=== PATIENT | female | born 1940 | race Caucasian/White ===

== ENCOUNTER 2017-12-29 20:12 | Inpatient (IN) ==
[2017-12-29] MEDS ORDERED: fentaNYL CITRATE/PF 50 MCG/ML AMPUL IV ONE (20:28)
--- NOTE | 2017-12-29 20:40 | ERNOTE ---
Lower Extremity HPI - Narrative Date of Service: 12/29/17 - General Lower Extremities Pain: hip: right Time Seen by Provider: 12/29/17 20:12 Source: patient, EMS Exam Limitations: no limitations - Immun/Allergies/Home Medications Immunizations: IMMUNIZATION HX Immunizations Up to Date Yes History of Influenza Vaccine No Hx Pneumococcal Vaccination No Allergies/Adverse Reactions: Allergies Allergy/AdvReac Type Severity Reaction Status Date / Time Penicillins Allergy Intermediate Hives Verified 12/29/17 23:34 codeine AdvReac Intermediate Vomiting Verified 12/29/17 23:34 morphine AdvReac Intermediate Vomiting Verified 12/29/17 23:34 Home Medications: HOME MEDICATIONS Levothyroxine Sodium [Levo-T] 25 mcg PO DAILY 12/29/17 [Last Taken 12/29/17 08:00] Metoprolol Succinate [Toprol Xl] 25 mg PO DAILY 12/29/17 [Last Taken 12/29/17 08:00] Mirtazapine [Mirtazapine (Remeron)] 15 mg PO HS 12/29/17 [Last Taken 12/28/17 21:00] - History of Present Illness Narrative: This patient is a 77-year-old female who was sent from [facility] for a hip fracture. She said that around 4 or 5 PM, she got up from the couch. Her foot was asleep and she fell, injuring her hip. She denies any other injury. She went to the hospital at [facility], where x-rays were done and she was diagnosed with a hip fracture. They do not have an orthopedic surgeon so the patient was sent here. The patient says that she has a history of hypothyroidism. She is not totally sure what medication she takes but she appears to also be on metoprolol. She denies chest pain or shortness of breath or any other problems. She received fentanyl without relief. She was given Dilaudid and vomited afterwards. Review of Systems - Review of Systems Constitutional: Absent: fever EYE: Absent: blurred vision, double vision ENT: Absent: ear pain, nose pain, nose congestion, sore throat Respiratory: Absent: shortness of breath, cough Cardiology: Absent: chest pain, palpitations, syncope Gastrointestinal/Abdominal: Present: nausea, vomiting. Absent: diarrhea, constipation, abdominal pain Genitourinary: Absent: frequency, pain, dysuria, hematuria Musculoskeletal: Present: joint pain. Absent: back pain, neck pain Skin: Absent: rash Neurological: Absent: headache, dizziness/light-headedness, numbness, tingling Endocrine: Present: other - No diabetes Hematologic/Lymphatic: Present: other - No bleeding Psych: Present: no symptoms reported Medical History (Last Updated 12/29/17 @ 20:39 by Jagdish Faith MD) Hypertension Hypothyroid She denies prior surgeries Surgical History: Surgical History (Last Reviewed 12/29/17 @ 23:32 by Nighat Jimenez RN) H/O tubal ligation Family History: Family History (Last Reviewed 12/29/17 @ 23:32 by Nighat Jimenez RN) Mother CVA (cerebral vascular accident) Heart disease Father CVA (cerebral vascular accident) Heart disease Social History: Preferred Language Wallisian Do you have any hoahaoism or Anabaptism cultural preference? Smoking Status Never smoker Alcohol Use none Drug Use none No Social History Section defined Physical Exam - Physical Exam General Appearance: Present: wd/wn, alert, no apparent distress Head Exam: Present: normal inspection, no evidence of injury, no tenderness w palpation Eye Exam: Normal inspection: bilateral Ears, Nose, Throat: Present: normal ENT inspection Neck: Present: normal inspection, nontender Respiratory: Present: no respiratory distress, normal breath sounds, no accessory muscle use, lungs clear Cardiovascular/Chest: Present: regular rate, rhythm, no murmur Gastrointestinal/Abdominal: Present: normal bowel sounds, nontender, nondistended, soft, no organomegaly Extremity Exam: Present: other - The right lower extremity is shortened and rotated. She has pain with movement of the hip. Neurological Exam: Present: alert, oriented, normal mood/affect Skin Exam: Present: normal color, warm/dry ED Progress - Date and Time Seen: Date and Time: The information sent from [facility] was reviewed. The x-ray report indicates displaced intertrochanteric fracture. No labs were done. Labs, x-rays, and EKG are back. I spoke with Dr. Locke and Dr. Curtis. The patient will be admitted. Plan is n.p.o. after midnight with surgical repair around 9 AM. - Results and Orders Patient's Lab Results:: I have reviewed the patient's lab results. - Vital Signs Patient's Vital Signs:: I have reviewed the patient's vital signs. Vital Signs: Vital Signs 11/24/18 20:14 Temperature 36.7 C Pulse Rate 70 Respiratory Rate 14 Blood Pressure 142/70 - EKG EKG read: Interp. by me - Normal sinus rhythm, rate 65, normal-appearing EKG. - X-Ray X-Ray #1 X-Ray: chest Interpretation: Interp. by me - No acute process - Progress/Reassessment Chief Complaint: Hip Pain/Injury Departure Clinical Impression: Intertrochanteric fracture of right hip, Urinary tract infection, History of hypertension, History of hypothyroidism - Departure Disposition: Still a patient Condition: Stable
[2017-12-29 20:49] LABS: Hematocrit 41.9 % (37.0-47.0); Hemoglobin 13.3 gm/dL (12.5-16.0); Mean Cell Volume 89.3 fl (78-100); Mean Corpuscular Hemoglobin 28.4 pg (27-31); Mean Corpuscular Hgb Conc 31.7 g/dl (32-36); Mean Platelet Volume 9.9 fl (8-12.5); Neutrophil # 14.9 K/mm3 (1.3-6.0); Neutrophil % 83.6 % (42-75.0); Platelet Count 405 K/mm3 (150-450); Red Blood Count 4.69 M/mm3 (4.2-5.4); Red Cell Distribution Width 14.3 % (11.5-14.0); White Blood Count 17.8 K/mm3 (4.0-10.5)
[2017-12-29 20:54] LABS: Urine Appearance Slightly Cloudy (CLEAR); Urine Bilirubin Negative (NEGATIVE); Urine Blood Negative /ul (NEGATIVE); Urine Color Yellow; Urine Ketone Negative (NEGATIVE); Urine Protein Negative (NEGATIVE); Urine pH 6.5 pH (5.0-7.0)
[2017-12-29 20:55] LABS: Urine Urobilinogen Normal (NORMAL)
[2017-12-29 20:58] LABS: Urine Nitrite Positive (NEGATIVE)
[2017-12-29 21:00] LABS: Urine Bacteria 3+; Urine RBC 0-5 /hpf (0-5); Urine WBC 0-5 /hpf (0-5)
[2017-12-29 21:03] LABS: Albumin * 3.4 gm/dl (3.4-5.0); Anion Gap 9.9 mmol/L (6.8-13.8); BUN/Creatinine Ratio 10.2 (9.0-21.6); Bilirubin, Total 0.3 mg/dL (0.0-1.1); Ca. Corrected For Albumin 9.3 mg/dL (8.4-10.2); Calcium * 9.1 mg/dL (7.9-10.9); Carbon Dioxide 28.5 mmol/L (24-32.6); Potassium 4.4 mmol/L (3.4-4.6); Total Protein 7.1 gm/dL (6.2-8.2)
--- NOTE | 2017-12-29 23:33 | HP ---
Chief Complaint - Chief Complaint Date of Service: 12/29/17 Time of Service: 23:32 Chief Complaint: Fall, right hip pain History of Present Illness: Asha is a 77 yo female who reports being in her usual state of health today. She had been sitting on her foot and got up to walk. Her foot had become numb from sitting on it and it caused her to trip and fall. She immediately began having right hip pain. She presented initially to [facility]. Right hip was found to be fracture and orthopedics at [facility] were consulted. The patient was accepted for transfer and arrived at our ER. She had bloodwork, urine, and ekg. Urine was suspicious for possible UTI and she had leukocytosis. Asha reports frequent urination but this is normal. She denies dysuria. She again reports no new symptoms from her baseline prior to the fall. She specifically denies chest pain or shortness of breath. She has never had problems with surgeries. Medical History (Last Reviewed 12/29/17 @ 23:32 by Nighat Jimenez RN) Hypertension Hypothyroid She denies prior surgeries Surgical History: Surgical History (Last Reviewed 12/29/17 @ 23:32 by Nighat Jimenez RN) H/O tubal ligation Family History: Family History (Last Reviewed 12/29/17 @ 23:32 by Nighat Jimenez RN) Mother CVA (cerebral vascular accident) Heart disease Father CVA (cerebral vascular accident) Heart disease Social History: Patient Lives/Resources Home Utilized Occupation retired Preferred Language Indian Do you have any shinto or Yes: Quaker cultural preference? Smoking Status Former smoker Have you smoked in the past 12 No months Do you dip or chew tobacco No Alcohol Use none Drug Use none No Social History Section defined Review Of Systems (GEN) - Review of Systems Generalized/Overall Review: Absent: Weakness, Chills, Fever EENTM: Present: No Symptoms Reported Respiratory: Present: No Symptoms Reported Cardiac: Absent: Chest Pain, Edema, Palpitations, Syncope Abdominal: Present: Nausea - after pain meds, Vomiting - after pain meds. Absent: Abdominal Pain Genitourinary: Present: Frequency. Absent: Burning, Itching, Urgency, Incontinent, Hematuria Musculoskeletal: Present: Joint Pain - Right hip Neurological: Present: No Symptoms Reported Skin: Present: No Symptoms Reported Endocrine: Present: No Symptoms Reported Immunizations: IMMUNIZATION HX Immunizations Up to Date Yes History of Influenza Vaccine No Hx Pneumococcal Vaccination No Allergies/Adverse Reactions: Allergies Allergy/AdvReac Type Severity Reaction Status Date / Time Penicillins Allergy Intermediate Hives Verified 12/29/17 23:34 codeine AdvReac Intermediate Vomiting Verified 12/29/17 23:34 morphine AdvReac Intermediate Vomiting Verified 12/29/17 23:34 Home Medications: HOME MEDICATIONS Levothyroxine Sodium [Levo-T] 25 mcg PO DAILY 12/29/17 [Last Taken 12/29/17 08:00] Metoprolol Succinate [Toprol Xl] 25 mg PO DAILY 12/29/17 [Last Taken 12/29/17 08:00] Mirtazapine [Mirtazapine (Remeron)] 15 mg PO HS 12/29/17 [Last Taken 12/28/17 21:00] Exam - Exam Vital Signs: Vital Signs - Last Taken Temp 36.7 C 12/29/17 23:25 Pulse 72 12/29/17 23:25 Resp 16 12/29/17 23:25 BP 132/78 12/29/17 23:25 Pulse Ox 96 12/29/17 23:25 Constitutional: Present: Alert, Oriented x3, Cooperative ENT Exam: Present: hearing grossly normal Eye Exam: bilateral eye: normal inspection Respiratory: Present: lungs clear, normal breath sounds Cardiovascular/Chest: Present: regular rate, rhythm, no murmur Abdomen: Present: Normal bowel sounds, soft, nontender, nondistended, no rebound tenderness Skin Exam: Present: normal color, warm/dry, no cyanosis Appearance: Present: appropriate appearance, appropriate insight Eye contact: Present: cooperative, good eye contact, normal speech Diagnostic Studies: Abnormal Lab Results 12/29/17 12/29/17 12/29/17 Range/Units 20:45 20:45 20:45 WBC 17.8 H (4.0-10.5) K/mm3 MCHC 31.7 L (32-36) g/dl RDW 14.3 H (11.5-14.0) % Immature Gran # (Auto) 0.06 H (0.000-0.0310) K/mm3 Neutrophils % 83.6 H (42-75.0) % Lymphocytes % 8.7 L (20-51) % Neutrophils # 14.9 H (1.3-6.0) K/mm3 Monocytes # 1.1 H (0.0-1.0) k/mm3 Est GFR (Non-Af Amer) 40 L (60-130) mL/min Random Glucose 131 H (70-110) mg/dL ALT 13 L (19-67) U/L Urine Nitrate Positive H (NEGATIVE) Ur Leukocyte Esterase 25 H (NEGATIVE) /ul Urine Bacteria 3+ H (NONE) Laboratory Results WBC 17.8 K/mm3 (4.0-10.5) H 12/29/17 20:45 RBC 4.69 M/mm3 (4.2-5.4) 12/29/17 20:45 Hgb 13.3 gm/dL (12.5-16.0) 12/29/17 20:45 Hct 41.9 % (37.0-47.0) 12/29/17 20:45 MCV 89.3 fl (78-100) 12/29/17 20:45 MCH 28.4 pg (27-31) 12/29/17 20:45 MCHC 31.7 g/dl (32-36) L 12/29/17 20:45 RDW 14.3 % (11.5-14.0) H 12/29/17 20:45 Plt Count 405 K/mm3 (150-450) 12/29/17 20:45 MPV 9.9 fl (8-12.5) 12/29/17 20:45 Immature Gran % (Auto) 0.30 % (0.001-0.429) 12/29/17 20:45 Immature Gran # (Auto) 0.06 K/mm3 (0.000-0.0310) H 12/29/17 20:45 Neutrophils % 83.6 % (42-75.0) H 12/29/17 20:45 Lymphocytes % 8.7 % (20-51) L 12/29/17 20:45 Monocytes % 6.1 % (0.0-9) 12/29/17 20:45 Eosinophils % 0.7 % (0.0-3.0) 12/29/17 20:45 Basophils % 0.6 % (0.0-1.0) 12/29/17 20:45 Nucleated RBC % 0.0 k/mm3 (0-1) 12/29/17 20:45 Neutrophils # 14.9 K/mm3 (1.3-6.0) H 12/29/17 20:45 Lymphocytes # 1.54 k/mm3 (1.5-3.5) 12/29/17 20:45 Monocytes # 1.1 k/mm3 (0.0-1.0) H 12/29/17 20:45 Eosinophils # 0.1 k/mm3 (0.0-0.7) 12/29/17 20:45 Absolute Basophils 0.1 k/mm3 (0.0-0.1) 12/29/17 20:45 Sodium 138 mmol/L (132-142) 12/29/17 20:45 Plasma Sodium 138 mmol/L (130-142) 12/29/17 20:45 Potassium 4.4 mmol/L (3.4-4.6) 12/29/17 20:45 Chloride 104 mmol/L (97-106) 12/29/17 20:45 Carbon Dioxide 28.5 mmol/L (24-32.6) 12/29/17 20:45 Anion Gap 9.9 mmol/L (6.8-13.8) 12/29/17 20:45 BUN 14 mg/dL (3-23) 12/29/17 20:45 Creatinine 1.37 mg/dL (0.4-1.4) 12/29/17 20:45 Est GFR (Non-Af Amer) 40 mL/min (60-130) L 12/29/17 20:45 BUN/Creatinine Ratio 10.2 (9.0-21.6) 12/29/17 20:45 Random Glucose 131 mg/dL (70-110) H 12/29/17 20:45 Calcium 9.1 mg/dL (7.9-10.9) 12/29/17 20:45 Calcium Adj for Albumin 9.3 mg/dL (8.4-10.2) 12/29/17 20:45 Total Bilirubin 0.3 mg/dL (0.0-1.1) 12/29/17 20:45 AST 24 U/L (0-48) 12/29/17 20:45 ALT 13 U/L (19-67) L 12/29/17 20:45 Alkaline Phosphatase 88 U/L (50-170) 12/29/17 20:45 Total Protein 7.1 gm/dL (6.2-8.2) 12/29/17 20:45 Albumin 3.4 gm/dl (3.4-5.0) 12/29/17 20:45 Urine Color Yellow 12/29/17 20:45 Urine Appearance Slightly cloudy (CLEAR) 12/29/17 20:45 Urine pH 6.5 pH (5.0-7.0) 12/29/17 20:45 Ur Specific [place] 1.020 SP.GR. (1.005-1.010) 12/29/17 20:45 Urine Protein Negative mg/dL (NEGATIVE) 12/29/17 20:45 Urine Glucose (UA) Negative mg/dL (NEGATIVE) 12/29/17 20:45 Urine Ketones Negative mg/dL (NEGATIVE) 12/29/17 20:45 Urine Blood Negative /ul (NEGATIVE) 12/29/17 20:45 Urine Nitrate Positive (NEGATIVE) H 12/29/17 20:45 Urine Bilirubin Negative mg/dl (NEGATIVE) 12/29/17 20:45 Urine Urobilinogen Normal EU/dl (NORMAL) 12/29/17 20:45 Ur Leukocyte Esterase 25 /ul (NEGATIVE) H 12/29/17 20:45 Urine RBC 0-5 /hpf (0-5) 12/29/17 20:45 Urine WBC 0-5 /hpf (0-5) 12/29/17 20:45 Ur Epithelial Cells None seen /hpf (0-5) 12/29/17 20:45 Urine Bacteria 3+ (NONE) H 12/29/17 20:45 Urine Culture Comments Culture to follow 12/29/17 20:45 Assessment/Plan - Narrative Narrative: Asha is a 77 yo female with right hip fracture and possible UTI. She was given Rocephin in the ER for possible UTI. UA is suspicious for UTI, but she has no acute symptoms from her baseline. She does have leukocytosis but this could be from long bone fracture or UTI. Will culture Urine. In regards to right hip fracture, she was evaluated for pre-operative risks, with review of labs and EKG. Based on Revised Cardiovascular Risk Index she has a risk of <0.4% for cardiovascular event. I feel she is medically cleared for surgery. Will follow along medically. - Assessment/Plan (1) Intertrochanteric fracture of right hip Problem: Acute (2) Urinary tract infection Problem: Acute (3) History of hypertension Problem: Acute
[2017-12-29] MEDS ORDERED: ACETAMINOPHEN 325 MG TABLET PO PRN (23:43)
[2017-12-29] MEDS: RINGER'S SOLUTION,LACTATED 1,000 ML IV PRN (23:45)
[2017-12-30] MEDS: KETOROLAC TROMETHAMINE 30 MG/ML VIAL IV SCH ×2 (00:01→05:23)
[2017-12-30] MEDS: HYDROcodone/ACETAMINOPHEN 1 EACH TABLET PO PRN ×3 (00:02→23:48)
--- NOTE | 2017-12-30 08:32 | CONS ---
- Reason for consultation (1) Intertrochanteric fracture of right hip Date of Service: 12/30/17 HPI - General Narrative: Mrs. Lamas is a 77-year-old female who was at home when she tripped and fell resulting in an injury to her right hip. She was unable to weight-bear. She was seen in outside emergency department and subsequently transferred to our hospital for further treatment. She is found to have an intertrochanteric femur fracture. She denies any previous hip pain or injury. She has a history of upper arm fractures but no hip or pelvis pathology. She lives independently and is a community ambulator runs her own errands. Source: patient Exam Limitations: no limitations - History of Present Illness Timing/Duration: 24 hours Severity: moderate Modifying Factors - (Worsens): Reports: movement Modifying Factors - (Improves): Reports: immobilization Associated Symptoms: denies symptoms Allergies/Adverse Reactions: Allergies Penicillins Allergy (Intermediate, Verified 12/29/17 23:34) Hives codeine Adverse Reaction (Intermediate, Verified 12/29/17 23:34) Vomiting morphine Adverse Reaction (Intermediate, Verified 12/29/17 23:34) Vomiting Home Medications: Home Medications Medication Instructions Recorded Last Taken Levothyroxine Sodium [Levo-T] 25 mcg PO DAILY 12/29/17 12/29/17 08:00 Metoprolol Succinate [Toprol Xl] 25 mg PO DAILY 12/29/17 12/29/17 08:00 Mirtazapine [Mirtazapine (Remeron)] 15 mg PO HS 12/29/17 12/28/17 21:00 Medications - Medications Current Medications: Current Medications Hydrocodone Bitart/Acetaminophen ([place] 5-325) 1 each PO Q3H PRN PRN Reason: Moderate Pain (pain scale 4-6) Stop: 01/28/18 23:44 Last Admin: 12/30/17 06:35 Dose: 1 each Lactated Ringer's (Lactated Ringers) 1,000 mls @ 125 mls/hr IV .Q8H PRN PRN Reason: HYDRATION Stop: 01/28/18 22:24 Last Admin: 12/29/17 23:45 Dose: 125 mls/hr Ketorolac Tromethamine (Toradol) 30 mg IV Q6H LELAND Stop: 12/31/17 17:46 Last Admin: 12/30/17 05:23 Dose: 30 mg Review of Systems - Review of Systems Generalized/Overall Review: Present: No Symptoms Reported Physical Examination - Exam Narrative: Right lower extremity: No lacerations, ecchymosis, or abrasions. Palpable dorsalis pedis pulse, sensation is intact light touch, she is able to flex and extend her toes. She is sitting with a flexed externally rotated leg. Thigh soft. Vital Signs: Vital Signs - Last Taken Temp 37.3 C 12/30/17 06:20 Pulse 64 12/30/17 06:20 Resp 18 12/30/17 06:20 BP 125/57 12/30/17 06:20 Pulse Ox 94 12/30/17 06:20 O2 Oxygen Delivery Method Room Air Constitutional: Present: Alert, Oriented x3 - Results and Findings: Narrative: Right hip films: Displaced right intertrochanteric femur fracture without any associated pelvic fractures. Lab/Microbiology results last 24 hrs: Abnormal/Pending Laboratory Last 24 HRS 12/29/17 12/29/17 12/29/17 20:45 20:45 20:45 WBC 17.8 H MCHC 31.7 L RDW 14.3 H Immature Gran # (Auto) 0.06 H Neutrophils % 83.6 H Lymphocytes % 8.7 L Neutrophils # 14.9 H Monocytes # 1.1 H Est GFR (Non-Af Amer) 40 L Random Glucose 131 H ALT 13 L Urine Nitrate Positive H Ur Leukocyte Esterase 25 H Urine Bacteria 3+ H Culture 12/29/17 20:45 Urine Culture - Preliminary Urine,Catheterized Gram Negative Bacilli - Assessments/Findings (1) Intertrochanteric fracture of right hip Diagnosis(s): The plan is for closed reduction posterior tendinous fixation. The risks and recovery were discussed as well as alternative treatment at the bedside with the patient. She will receive Ancef with a test dose of antibiotics. She will need 6 weeks of DVT prophylaxis. Plan is to proceed this morning. Problem: Acute Qualifiers: Encounter type: initial encounter Fracture type: closed Fracture alignment: displaced Qualified Code(s): S72.141A - Displaced intertrochanteric fracture of right femur, initial encounter for closed fracture
--- NOTE | 2017-12-30 08:55 | ANES ---
Anesthesia Pre Procedure Eval Vitals/Labs: Last Vital Signs Temp 37.3 C 12/30/17 06:20 Pulse 64 12/30/17 06:20 Resp 18 12/30/17 06:20 BP 125/57 12/30/17 06:20 Pulse Ox 94 12/30/17 06:20 HOME MEDICATIONS Levothyroxine Sodium [Levo-T] 25 mcg PO DAILY 12/29/17 [Last Taken 12/29/17 08:00] Metoprolol Succinate [Toprol Xl] 25 mg PO DAILY 12/29/17 [Last Taken 12/29/17 08:00] Mirtazapine [Mirtazapine (Remeron)] 15 mg PO HS 12/29/17 [Last Taken 12/28/17 21:00] Allergies/Adverse Reactions: Allergies Allergy/AdvReac Type Severity Reaction Status Date / Time Penicillins Allergy Intermediate Hives Verified 12/29/17 23:34 codeine AdvReac Intermediate Vomiting Verified 12/29/17 23:34 morphine AdvReac Intermediate Vomiting Verified 12/29/17 23:34 - Planned Procedure Planned Procedure: HIP FIX Medication List Reviewed:: Yes Allergies Verified: Yes Medical History (Last Reviewed 12/30/17 @ 08:50 by Wilfred Dye CRNA) Hypertension Hypothyroid She denies prior surgeries Surgical History (Last Reviewed 12/30/17 @ 08:50 by Wilfred Dye CRNA) H/O tubal ligation Family History (Last Reviewed 12/30/17 @ 08:50 by Wilfred Dye CRNA) Mother CVA (cerebral vascular accident) Heart disease Father CVA (cerebral vascular accident) Heart disease - Family Anesthesia History Family History:: no untoward family reactions to anesthesia, no familial bleeding tendencies, no family history of clotting disorders, no family history of premature - Airway/Neck/Teeth Within Normal Limits:: Yes Denture Type: Full- Upper & Lower Neck Exam: non-tender, full range of motion, normal alignment Mallampatti Score: 1 Thyromental (T-M) distance: > 6 cm Mandibulo Hyoid distance: > 3 cm - Respiratory Respiratory: chest non-tender, lungs clear, normal breath sounds Smoking Status: Former smoker Discussed smoking cessation including day of surgery: Yes Sleep Apnea currently treated: No Sleep Apnea by current assessment: No - Cardiovascular Patient History - Cardiac/Respiratory: No pertinent hx, Hypertension Tolerates Activity: Fair Heart Sounds: S1 & S2, Regular - Anesthesia Assessment and Plan ASA Class: PS, III, E Anesthesia Type Plan: Spinal
[2017-12-30] MEDS: RINGER'S SOLUTION,LACTATED 1,000 ML IV PRN ×4 (09:00→22:07)
[2017-12-30] MEDS ORDERED: MAGNESIUM HYDROXIDE 30 ML UDC PO PRN (10:51)
[2017-12-30] MEDS ORDERED: ACETAMINOPHEN 500 MG TABLET PO PRN (10:51)
[2017-12-30] MEDS ORDERED: MAG HYDROX/ALUMINUM HYD/SIMETH 30 ML UDC PO PRN (10:51)
[2017-12-30] MEDS ORDERED: HYDROmorphone HCL 1 MG/ML DISP.SYRIN IV PRN (10:51)
--- NOTE | 2017-12-30 10:55 | OR ---
Operative Report - Dictated Report Narrative: Date: 12/30/2017 Surgeon: Scott Locke M.D. Salon Coordinator: None Preoperative diagnosis: Closed right Intertrochanteric femur fracture Postoperative diagnosis: Closed right Intertrochanteric femur fracture Operations and procedures: 1. Closed reduction, cephalo-medullary fixation right intertrochanteric femur fracture 2. Intraoperative interpretation of radiographs Anesthesia: Spinal Specimens: None Estimated blood loss: 50 Milliliters Retained implants: [employer] Trigen InterTAN 130 degree size 10 mm by 18 centimeter nail with 95 millimeter lag screw and 90 millimeter compression screw, with distal locking screw Complications: None Indications for procedure: Mrs. Lamas is a 77-year-old female who injured the right leg after ground-level fall at home. They were admitted to the hospital after being evaluated in the emergency department. Once the medical provider felt that they were stable for surgical treatment, the risks and benefits alternatives were discussed. The risks of , blood clots, bleeding, infection, nerve/tendon/blood vessel injury, malunion, nonunion, failure of implants, painful implants, arthrosis, and need for additional procedures were discussed. The extremity was marked and consent was obtained on the floor. Procedure: After marking the operative extremity on the floor, the patient was taken to the operating room. A timeout was performed. IV antibiotics consisting of Ancef were administered. A spinal anesthetic was induced by anesthesia, and the patient was then placed onto a fracture table with a well-padded perineal post. The nonoperative leg was placed in a well-padded traction boot in slight ext ension without any traction with an SCD on the leg. The operative leg was placed in a well-padded traction boot. Longitudinal traction, internal rotation, and flexion were utilized in order to reduce the fracture. Preliminary images were attained utilizing C-arm in both the AP and lateral views. This confirmed that we had obtained adequate visualization of the fracture as well as reduction. Next the hip was then prepped and draped in a standard sterile fashion. Next the guidewire was placed percutaneously proximal to the greater trochanter to amanda a starting point at the tip of the greater trochanter centered on the lateral view. This was passed down to the level below the lesser trochanter. A scalpel was utilized in order to dissect down to the greater trochanter in order to place the soft tissue protector down to bone. The entry drill was then placed down the proximal femur to the level of the lesser trochanter. The proper size nail was then selected and impacted into place. The outrigger was utilized in order to confirm the appropriate depth of the nail. Using the alignment device on the outrigger, an incision was made over the lateral femur. Sharp dissection was carried through the iliotibial band down to the proximal femur. The guidewire was placed into the femoral head in a center- center position on AP and lateral views. The tip-apex distance of less than 25 mm combined was obtained. Once we felt that we had placed a guidewire in the appropriate position, it was measured. Next the compression screw site was drilled through the lateral femoral cortex. This was then drilled down to the appropriate depth, again confirming that we are within the confines the bone. The derotational bar was then placed and the lag screw was drilled. The lag screw was then secured in place seating fully ensuring that we were within the confines of the bone. The compression screw was then inserted allowing for compression while releasing the traction on the leg. Using C-arm this was visualized to allow for compression across the fracture site. Once is felt that we had adequately stabilized the intertrochanteric fracture, the distal interlocking screw was placed in a dynamic position. It was confirmed to be the appropriate length and within the nail on both AP and lateral views. The nail was secured allowing for controlled compression and the outrigger was removed. The wounds were then thoroughly irrigated. Final images were obtained. The hip was placed through range of motion and showed no crepitance. The deep fascia was closed with 0 Vicryl, the subcutaneous tissue with 3-0 Vicryl, and the skin was closed with ralf. Sterile dressings of Xeroform, 4 x 4, and tape were applied. All sponge, sharp, and instrument counts were correct prior to closing the wounds. The patient was then awoken and transferred to the postanesthesia care unit in stable condition.
--- NOTE | 2017-12-30 11:07 | ANES ---
Post Anesthesia Discharge - Transfer of Care Transfer of Care handoff given to nurse: Yes - Discharge from PACU Discharge from PACU when meets criteria: Yes - Alert and comfortable
[2017-12-30] MEDS: ONDANSETRON HCL/PF 2 MG/ML VIAL IV PRN ×3 (11:49→23:42)
[2017-12-30] MEDS: ceFAZolin SODIUM 1 GM in DEXTROSE 5 % IN WATER 100 ML IV SCH ×4 (12:18→19:02)
--- NOTE | 2017-12-30 12:43 | ANES ---
Post Anesthesia Assessment - Vital Signs Vitals: Last Vital Signs Temp 36.3 C 12/30/17 11:20 Pulse 95 12/30/17 11:20 Resp 18 12/30/17 11:20 BP 101/72 12/30/17 11:20 Pulse Ox 95 12/30/17 11:20 Airway Patency: Normal - Mental Status Level Of Consciousness: Awake, Alert - Pain Level Pain Score: 0 - N/V Assessment Nausea/Vomiting Presence: None Dehydration:: No
[2017-12-30] MEDS: WARFARIN SODIUM 5 MG TABLET PO SCH (17:23)
--- NOTE | 2017-12-30 19:49 | PN ---
Subjective - Date and Time Seen Date: 12/30/17 Time: 19:49 Subjective Narrative: Pain controlled. No fever, chills. No concerns. Objective - Vitals Vitals: Last Vital Signs Temp 36.9 C 12/30/17 11:53 Pulse 85 12/30/17 17:38 Resp 16 12/30/17 13:38 BP 133/77 12/30/17 17:38 Pulse Ox 91 L 12/30/17 17:38 - Abnormal Lab Findings Abnormal Lab Findings: Abnormal Lab Results 12/29/17 12/29/17 12/29/17 Range/Units 20:45 20:45 20:45 WBC 17.8 H (4.0-10.5) K/mm3 MCHC 31.7 L (32-36) g/dl RDW 14.3 H (11.5-14.0) % Immature Gran # (Auto) 0.06 H (0.000-0.0310) K/mm3 Neutrophils % 83.6 H (42-75.0) % Lymphocytes % 8.7 L (20-51) % Neutrophils # 14.9 H (1.3-6.0) K/mm3 Monocytes # 1.1 H (0.0-1.0) k/mm3 Est GFR (Non-Af Amer) 40 L (60-130) mL/min Random Glucose 131 H (70-110) mg/dL ALT 13 L (19-67) U/L Urine Nitrate Positive H (NEGATIVE) Ur Leukocyte Esterase 25 H (NEGATIVE) /ul Urine Bacteria 3+ H (NONE) - Exam Constitutional: Present: Alert, Oriented x3, Cooperative Respiratory: Present: lungs clear Cardiovascular/Chest: Present: regular rate, rhythm Abdomen: Present: Normal bowel sounds, soft, nontender Cauti Physician Documentation - Urinary Catheter Management Urethral ([place]) Date of Insertion: 12/29/17 Time of Insertion: 20:25 Assessment/Plan Plan Narrative: 1) Hip Fracture - Repaired today by ortho. Work with PT 2) UTI - Cultures pending, received rocephin from ER. Had ancef today with surgery. Will switch to PO antibiotics starting tomorrow cipro 500mg BID. Avoiding bactrim due to warfarin and has PCN allergy, therefore treat with Cipro. - Problems/Diagnosis (1) Intertrochanteric fracture of right hip Problem: Acute Qualifiers: Encounter type: initial encounter Fracture type: closed Fracture alignment: displaced Qualified Code(s): S72.141A - Displaced intertrochanteric fracture of right femur, initial encounter for closed fracture (2) Urinary tract infection Problem: Acute (3) History of hypertension Problem: Acute
[2017-12-30] MEDS: SENNOSIDES/DOCUSATE SODIUM 1 TAB TABLET PO SCH (20:32)
[2017-12-31] MEDS: ceFAZolin SODIUM 1 GM in DEXTROSE 5 % IN WATER 100 ML IV SCH ×2 (01:32)
[2017-12-31] MEDS: HYDROcodone/ACETAMINOPHEN 1 EACH TABLET PO PRN ×5 (01:53→21:26)
[2017-12-31 05:45] LABS: Hematocrit 28.7 % (37.0-47.0); Mean Cell Volume 90.5 fl (78-100); Mean Corpuscular Hemoglobin 28.4 pg (27-31); Mean Corpuscular Hgb Conc 31.4 g/dl (32-36); Mean Platelet Volume 9.7 fl (8-12.5); Platelet Count 265 K/mm3 (150-450); Red Blood Count 3.17 M/mm3 (4.2-5.4); Red Cell Distribution Width 14.4 % (11.5-14.0); White Blood Count 8.2 K/mm3 (4.0-10.5)
[2017-12-31 05:55] LABS: Anion Gap 11.6 mmol/L (6.8-13.8); BUN/Creatinine Ratio 8.5 (9.0-21.6); Calcium * 7.7 mg/dL (7.9-10.9); Carbon Dioxide 28.5 mmol/L (24-32.6); Estimated Creat Clear 28.6; Potassium 4.1 mmol/L (3.4-4.6)
[2017-12-31] MEDS ORDERED: ceFAZolin SODIUM 1 GM VIAL IV PRN (06:00)
[2017-12-31 08:23] LABS: Prothrombin Time (Patient) 10.9 Seconds (9.0-11.0)
[2017-12-31 08:26] LABS: INR 1.09 INR (0.90-1.10)
[2017-12-31] MEDS ORDERED: CIPROFLOXACIN HCL 500 MG TABLET PO SCH (09:00)
[2017-12-31] MEDS: ENOXAPARIN SODIUM 40 MG/0.4 ML SYRG SC SCH (09:43)
[2017-12-31] MEDS: NITROFURANTOIN/NITROFURAN MAC 100 MG CAPSULE PO SCH ×2 (09:43→21:26)
--- NOTE | 2017-12-31 14:11 | PN ---
Subjective - Date and Time Seen Date: 12/31/17 Time: 14:08 Subjective Narrative: Having pain. Up to the chair twice today. Planning on going to SNF. No other complaints Objective - Review of Systems Generalized/Overall Review: Reports: No Symptoms Reported - Vitals Vitals: Last Vital Signs Temp 37.0 C 12/31/17 10:02 Pulse 73 12/31/17 10:02 Resp 14 12/31/17 10:02 BP 139/72 12/31/17 10:02 Pulse Ox 92 L 12/31/17 10:02 - Abnormal Lab Findings Abnormal Lab Findings: Abnormal Lab Results 12/31/17 12/31/17 Range/Units 05:35 05:35 RBC 3.17 L (4.2-5.4) M/mm3 Hgb 9.0 L (12.5-16.0) gm/dL Hct 28.7 L (37.0-47.0) % MCHC 31.4 L (32-36) g/dl RDW 14.4 H (11.5-14.0) % Creatinine 1.53 H (0.4-1.4) mg/dL Est GFR (Non-Af Amer) 35 L (60-130) mL/min BUN/Creatinine Ratio 8.5 L (9.0-21.6) Calcium 7.7 L (7.9-10.9) mg/dL - Exam Exam Narrative: RLE - Palp DP, sensation intact to light touch, moving toes, mild pain with hip ROM, thigh soft, dressings dry Constitutional: Present: Alert, Oriented x3 Cauti Physician Documentation - Urinary Catheter Management Urethral ([place]) Date of Insertion: 12/29/17 Time of Insertion: 20:25 Date of Removal: 12/31/17 Time of Removal: 04:44 Assessment/Plan - Problems/Diagnosis (1) Intertrochanteric fracture of right hip Problem: Acute Qualifiers: Encounter type: subsequent encounter Fracture type: closed Fracture alignment: displaced Fracture healing: with routine healing Qualified Code(s): S72.141D - Displaced intertrochanteric fracture of right femur, subsequent encounter for closed fracture with routine healing Narrative: WBAT, ROM as tolerated. Keep wound clean and dry, cover with dry gauze and tape, continue PT, ice to hip, 6 weeks DVT prophylaxis, OK for transfer when stable, f/u 2 weeks from DC w/ Ortho.
[2017-12-31] MEDS: WARFARIN SODIUM 5 MG TABLET PO SCH (17:51)
[2017-12-31] MEDS: SENNOSIDES/DOCUSATE SODIUM 1 TAB TABLET PO SCH (21:26)
--- NOTE | 2017-12-31 23:11 | PN ---
Subjective - Date and Time Seen Date: 12/31/17 Time: 15:00 Subjective Narrative: Reports weakness, but feeling better. No fever, chills, nausea, or vomiting. Objective - Vitals Vitals: Last Vital Signs Temp 36.8 C 12/31/17 19:23 Pulse 95 12/31/17 19:23 Resp 16 12/31/17 19:23 BP 136/73 12/31/17 19:23 Pulse Ox 95 12/31/17 19:23 - Abnormal Lab Findings Abnormal Lab Findings: Abnormal Lab Results 12/31/17 12/31/17 Range/Units 05:35 05:35 RBC 3.17 L (4.2-5.4) M/mm3 Hgb 9.0 L (12.5-16.0) gm/dL Hct 28.7 L (37.0-47.0) % MCHC 31.4 L (32-36) g/dl RDW 14.4 H (11.5-14.0) % Creatinine 1.53 H (0.4-1.4) mg/dL Est GFR (Non-Af Amer) 35 L (60-130) mL/min BUN/Creatinine Ratio 8.5 L (9.0-21.6) Calcium 7.7 L (7.9-10.9) mg/dL - Exam Constitutional: Present: Alert, Oriented x3, Cooperative Respiratory: Present: lungs clear, normal breath sounds Cardiovascular/Chest: Present: regular rate, rhythm, no murmur Abdomen: Present: Normal bowel sounds, soft, nontender, nondistended Cauti Physician Documentation - Urinary Catheter Management Urethral ([place]) Date of Insertion: 12/29/17 Time of Insertion: 20:25 Date of Removal: 12/31/17 Time of Removal: 04:44 Assessment/Plan Plan Narrative: Overall doing well. Continue PT. Will need SNF. Antibiotics for UTI. - Problems/Diagnosis (1) Intertrochanteric fracture of right hip Problem: Chronic Qualifiers: Encounter type: subsequent encounter Fracture type: closed Fracture alignment: displaced Fracture healing: with routine healing Qualified Code(s): S72.141D - Displaced intertrochanteric fracture of right femur, subsequ ent encounter for closed fracture with routine healing (2) Urinary tract infection Problem: Acute Qualifiers: Urinary tract infection type: acute cystitis (3) History of hypertension Problem: Acute
[2018-01-01] MEDS: HYDROcodone/ACETAMINOPHEN 1 EACH TABLET PO PRN ×2 (04:33→07:32)
[2018-01-01 05:36] LABS: Prothrombin Time (Patient) 14.4 Seconds (9.0-11.0)
[2018-01-01 05:38] LABS: INR 1.43 INR (0.90-1.10)
--- NOTE | 2018-01-01 09:01 | DS ---
(1) Intertrochanteric fracture of right hip Problem: Acute Qualifiers: Encounter type: subsequent encounter Fracture type: closed Fracture alignment: displaced Fracture healing: with routine healing Qualified Code(s): S72.141D - Displaced intertrochanteric fracture of right femur, subsequent encounter for closed fracture with routine healing (2) Urinary tract infection Problem: Acute Qualifiers: Urinary tract infection type: acute cystitis (3) History of hypertension Problem: Acute Description of Stay: Asha is a 77 yo female that was admitted for fall with right hip fracture. She was medically evaluated and found to have a urinary tract infection, but was otherwise medically cleared for surgery. She underwent Closed reduction, cephalo-medullary fixation right intertrochanteric femur fracture on 12/30/17. She did well without complication. She was treated initially with ciprofloxacin for her UTI, but after sensitivities returned showing e.coli resistant to Cipro, she was changed to Macrobid. She will continue this for 10 days. She progressed with therapy, but needs additional therapy before going back home. She was accepted for rehab at [facility] and is medically doing well and ready for discharge to [facility] today. Procedures Performed: see notes below List Procedures: Closed reduction, cephalo-medullary fixation right intertrochanteric femur fracture 12/30/17 Results and Findings: Lab Pending Results 12/29/17 20:45: WBC 17.8 H, RBC 4.69, Hgb 13.3, Hct 41.9, MCV 89.3, MCH 28.4, MCHC 31.7 L, RDW 14.3 H, Plt Count 405, MPV 9.9, Immature Gran % (Auto) 0.30, Immature Gran # (Auto) 0.06 H, Neutrophils % 83.6 H, Lymphocytes % 8.7 L, Monocytes % 6.1, Eosinophils % 0.7, Basophils % 0.6, Nucleated RBC % 0.0, Neutrophils # 14.9 H, Lymphocytes # 1.54, Monocytes # 1.1 H, Eosinophils # 0.1, Absolute Basophils 0.1 12/29/17 20:45: Sodium 138, Plasma Sodium 138, Potassium 4.4, Chloride 104, Carbon Dioxide 28.5, Anion Gap 9.9, BUN 14, Creatinine 1.37, Est GFR (Non-Af Amer) 40 L, BUN/Creatinine Ratio 10.2, Random Glucose 131 H, Calcium 9.1, Calcium Adj for Albumin 9.3, Total Bilirubin 0.3, AST 24, ALT 13 L, Alkaline Phosphatase 88, Total Protein 7.1, Albumin 3.4 12/29/17 20:45: Urine Color Yellow, Urine Appearance Slightly cloudy, Urine pH 6.5, Ur Specific [place] 1.020, Urine Protein Negative, Urine Glucose (UA) Negative, Urine Ketones Negative, Urine Blood Negative, Urine Nitrate Positive H, Urine Bilirubin Negative, Urine Urobilinogen Normal, Ur Leukocyte Esterase 25 H, Urine RBC 0-5, Urine WBC 0-5, Ur Epithelial Cells None seen, Urine Bacteria 3+ H, Urine Culture Comments Culture to follow 12/31/17 05:35: WBC 8.2 D, RBC 3.17 L, Hgb 9.0 L, Hct 28.7 L, MCV 90.5, MCH 28.4, MCHC 31.4 L, RDW 14.4 H, Plt Count 265, MPV 9.7 12/31/17 05:35: Sodium 141, Plasma Sodium 141, Potassium 4.1, Chloride 105, Carbon Dioxide 28.5, Anion Gap 11.6, BUN 13, Creatinine 1.53 H, Est GFR (Non-Af Amer) 35 L, BUN/Creatinine Ratio 8.5 L, Random Glucose 99, Calcium 7.7 L 12/31/17 05:35: PT 10.9, INR (Anticoag Therapy) 1.09 01/01/18 05:00: PT 14.4 H, INR (Anticoag Therapy) 1.43 H Discharge Location: [facility] Disposition: [facility] Condition: Stable Level of Care: SNF Discharge Activity: Activity as tolerated Discharge Diet: General/regular food Custodial Therapy: Physicial Therapy, Occupation Therapy Referrals: [facility] [Non Staff Physicians] - Scott Locke MD [Staff Physician] - Two Weeks Problem Oriented Discharge Instructions to Patient/Family: Urinary Tract Infection, Adult, [id number], Hip Fracture Additional Patient Instructions (free text): WBAT, ROM as tolerated. Keep wound clean and dry, cover with dry gauze and tape. Continue PT Ice to hip PRN for comfort. 6 weeks DVT prophylaxis f/u 2 weeks from DC w/ Ortho. Prescriptions (Any new or edited meds): Enoxaparin Sodium [Lovenox] 40 mg SC Q24H #2 disp.syrin HYDROcodone/ACETAMINOPHEN [[place] 5-325] 1 ea PO Q4H PRN #60 tab PRN Reason: Moderate Pain (Pain Scale 4-6) Nitrofurantoin/Nitrofuran Mac [Macrobid] 100 mg PO BID #18 cap Warfarin Sodium [Coumadin] 5 mg PO DAILY@1700 #30 tab Complete Home Medications List: Complete Home Medication List: Levothyroxine Sodium [Levo-T] 25 mcg PO DAILY 12/29/17 Metoprolol Succinate [Toprol Xl] 25 mg PO DAILY 12/29/17 Mirtazapine [Remeron] 15 mg PO HS 12/29/17 Acetaminophen [Tylenol] 650 mg PO Q6H PRN tablet 01/01/18 Enoxaparin Sodium [Lovenox] 40 mg SC Q24H #2 disp.syrin 01/01/18 HYDROcodone/ACETAMINOPHEN [[place] 5-325] 1 ea PO Q4H PRN #60 tab 01/01/18 Mag Hydrox/Aluminum Hyd/Simeth [Maalox Plus Suspension] 30 ml PO Q6H PRN udc 01/01/18 Nitrofurantoin/Nitrofuran Mac [Macrobid] 100 mg PO BID #18 cap 01/01/18 Sennosides/Docusate Sodium [Senokot-S] 2 tab PO HS tablet 01/01/18 Warfarin Sodium [Coumadin] 5 mg PO DAILY@1700 #30 tab 01/01/18 Amb Orders for Discharge: Prothrombin Time Time Frame: 01/03/18, Location: Laboratory
[2018-01-01] MEDS: NITROFURANTOIN/NITROFURAN MAC 100 MG CAPSULE PO SCH (09:20)
[2018-01-01] MEDS: ENOXAPARIN SODIUM 40 MG/0.4 ML SYRG SC SCH (09:22)
[2018-01-01 13:42] VITALS: BP 142/65
== END 2018-01-01 10:30 | DRG 481 ==
LOC: ER 20:12 → MS 22:24
PROVIDERS: ADMIT Family Medicine; ATTEND Family Medicine
DX: S72.009A Fracture of unspecified part of neck of unspecified femur, initial encounter for closed fracture
CPT/HCPCS: 36415; 51702; 71010; 71045; 73502; 76000; 80048; 80053; 81001; 85025; 85027; 85610; 87086; 93005; 96365; 96375; 97110; 97116; 97162; 97166; 99285; J2405